=== PATIENT | female | born 1980 | race Caucasian/White ===

== ENCOUNTER → 2016-08-30 | Outpatient (CLI) | payer OTHER ==
[2016-08-30 09:03] LABS: Basophils # (A) 0.1 k/uL (0-0.2); Basophils % (A) 1 %; CH 34.2; CHCM 33.4; Eosinophils # (A) 0.3 k/uL (0-0.7); Eosinophils % (A) 4 %; HCT 43.7 % (34.0-46.0); HDW 2.01; HGB 14.2 gm/dL (11.4-16.0); Luc # (Auto) 0.18; Luc % (Auto) 3; Lymphocytes % (A) 30 %; MCH 33.4 pg (25.0-35.0); MCHC 32.4 g/dL (31.0-37.0); MCV 102.9 fL (80.0-100.0); Mean Platelet Volume 6.3; Monocytes # (A) 0.4 k/uL (0-1.0); Monocytes % (A) 5 %; Neutrophils # (A) 3.9 k/uL (1.3-7.7); Neutrophils % (A) 57 %; RBC 4.25 m/uL (3.80-5.40); RDW 11.8 % (11.5-15.5); WBC 6.8 k/uL (3.8-10.6); WBC (Perox) 7.17
== END | disposition home or self-care (01) ==
LOC: LABPAT 08:22
PROVIDERS: ATTEND Obstetrics & Gynecology
DX: Z01.812 Encounter for preprocedural laboratory examination (principal)
CPT/HCPCS: 36415; 85025

== ENCOUNTER 2016-09-03 07:10 | Day surgery (SDC) | payer OTHER ==
[2016-08-29 14:58] VITALS: BMI 25.6
[~2016-09-03 07:10] MED LIST: DEXAMETHASONE SOD PHOSPHATE 10 MG/ML 1 ML VIAL IV ONE; HYDROmorphone 1 MG/ML 1 ML SYRINGE IVP PRN; LIDOCAINE 1% 20 ML VIAL (10MG/ML) FOR IV START INTRADERMA PRN; MIDAZOLAM 2 MG/2 ML VIAL IV PRN; ONDANSETRON 4 MG/2 ML VIAL IVP ONE; Pre Op ABX Message 1 EACH MISC MISCELLANE ONE; SCOPOLAMINE 1.5MG/72HR PATCH TRANSDERM ONE
[2016-09-03] MEDS: LACTATED RINGERS 1,000 ML IV SCH ×2 (07:39→09:20)
--- NOTE | 2016-09-03 07:54 | P.HPOB ---
History of Present Illness H&P Date: 09/03/16 Chief Complaint: Menorrhagia 36 year old presents for D&C hysteroscopy and endometrial ablation with novasure. Review of Systems All systems: negative Constitutional: Denies chills, Denies fever Eyes: denies blurred vision, denies pain Ears, nose, mouth and throat: Denies headache, Denies sore throat Cardiovascular: Denies chest pain, Denies shortness of breath Respiratory: Denies cough Gastrointestinal: Denies abdominal pain, Denies diarrhea, Denies nausea, Denies vomiting Genitourinary: Denies dysuria, Denies hematuria Musculoskeletal: Denies myalgias Integumentary: Denies pruritus, Denies rash Neurological: Denies numbness, Denies weakness Psychiatric: Denies anxiety, Denies depression Endocrine: Denies fatigue, Denies weight change Past Medical History Past Medical History: Fibromyalgia Additional Past Medical History / Comment(s): fibromyalgia. MENORRHAGIA History of Any Multi-Drug Resistant Organisms: None Reported Past Surgical History: Section Additional Past Surgical History / Comment(s): D&C. LT HAND SX Past Anesthesia/Blood Transfusion Reactions: No Reported Reaction Past Psychological History: No Psychological Hx Reported Smoking Status: Current every day smoker Past Alcohol Use History: Daily Additional Past Alcohol Use History / Comment(s): SMOKES 1/2 PPD SINCE 2002 Past Drug Use History: None Reported - Past Family History Mother Family Medical History: Cancer Medications and Allergies Allergies Allergy/AdvReac Type Severity Reaction Status Date / Time lisinopril AdvReac Anaphylaxis Verified 09/03/16 07:32 Exam Osteopathic Statement: *. No significant issues noted on an osteopathic structural exam other than those noted in the History and Physical/Consult. - Vital Signs Vital signs: Vital Signs Temp Pulse Resp BP Pulse Ox 09/03/16 07:32 98.2 F 96 16 140/80 98 HEart: RRR Lungs: CTAB Abomen: soft, nontender Extremeties: neg mckayla's Assessment and Plan (1) Menorrhagia Status: Acute Plan: 1.D&C hysteroscopy and endometrial ablation with NovaSure
[2016-09-03] MEDS ORDERED: KETOROLAC 30 MG/ML 1 ML VIAL ONE (08:02)
[2016-09-03] MEDS ORDERED: LIDOCAINE 1% INJ 10MG/ML (20 ML MDV) ONE (08:02)
[2016-09-03] MEDS ORDERED: MIDAZOLAM 2 MG/2 ML VIAL ONE (08:02)
[2016-09-03] MEDS ORDERED: PROPOFOL 10 MG/ML 20 ML VIAL IV ONE (08:02)
--- NOTE | 2016-09-03 08:25 | P.OP ---
Date of Procedure: 09/03/16 Preoperative Diagnosis: 1.menorrhagia Postoperative Diagnosis: 1. menorrhagia Procedure(s) Performed: D&C, hysteroscopy, endometrial ablation with NovaSure Anesthesia: MAC Surgeon: Jannette Eaton Estimated Blood Loss (ml): 10 IV fluids (ml): 600 Urine output (ml): 20 Pathology: other (Endometrial curettings) Condition: stable Disposition: PACU Operative Findings: Cavity length 6.5 cm width 4.2 cm power 150 W time of ablation 58 seconds, adequate ablation after shoulder Description of Procedure: Patient is taken the operating room where general anesthesia was obtained without difficulty. She was prepped and draped in normal sterile fashion dorsal lithotomy position, legs placed in the candy cane stirrups. Bladder was drained of all urine. Weighted speculum placed in the vagina and the anterior lip the cervix was grasped with serial tooth tenaculum. The uterus sounded to 9 cm and the cervix under 2.5 cm making the cavity length 6.5 cm. The cervix was dilated to #8 Hegar dilator. Hysteroscopy was then performed. Both ostia were visualized and there was a smooth contour of the uterus. Sharp curet was then gently used to obtain endometrial curettings. The NovaSure was introduced into the uterus with a cavity length of 6.5 cm, width 4.2 cm. after cavity assessment was passed, the time of ablation was 58 seconds at 150 W. Hysteroscopy was again performed and adequate ablation was noted. All instruments removed from the vagina. Patient tolerated the procedure well, sponge and instrument counts were correct 2 and she was taken to recovery in stable condition.
[2016-09-03 08:34] VITALS: TEMP 97.2
[2016-09-03] MEDS ORDERED: HYDROmorphone 1 MG/ML 1 ML SYRINGE IVP ONE ×2 (08:46→08:57)
[2016-09-03 08:48] VITALS: RESP 16
[2016-09-03 09:44] VITALS: BP 105/78; PULSE 82
[2016-09-03] MEDS ORDERED: IBUPROFEN 200 MG TAB PO ONE (10:05)
== END 2016-09-03 10:37 | disposition home or self-care (01) ==
LOC: OR 07:10
PROVIDERS: ATTEND Obstetrics & Gynecology
DX: N92.0 Excessive and frequent menstruation with regular cycle (principal); M79.7 Fibromyalgia; F17.200 Nicotine dependence, unspecified, uncomplicated; Z79.1 Long term (current) use of non-steroidal anti-inflammatories (NSAID); Z88.8 Allergy status to other drugs, medicaments and biological substances
CPT/HCPCS: 81025; 88305; 58563; J2250; J1100; J2405; J2001; J1885; J1170; J2704

== ENCOUNTER → 2019-12-10 | Outpatient (CLI) | payer OTHER ==
--- NOTE | 2019-12-10 13:20 | MM ---
Reason for exam: clinical finding. Physical Findings: Nurse did not find any significant physical abnormalities on exam. MG Diagnostic Mammo w CAD AR Bilateral CC, MLO, spot compression CC, and ML view(s) were taken. No prior studies available for comparison. The breast tissue is extremely dense which could obscure a lesion on mammography. Finding: There is a high density, irregular mass located 4 cm from the nipple in the upper outer quadrant, middle position of the right breast. Asymmetric breast tissue greater in the left breast. These results were verbally communicated with the patient and result sheet given to the patient on 12/10/19. ASSESSMENT: Incomplete: need additional imaging evaluation, BI-RAD 0 RECOMMENDATION: Ultrasound of both breasts.
--- NOTE | 2019-12-10 13:23 | USB ---
Reason for exam: additional evaluation requested from abnormal screening. US Breast Workup Limited AR Right limited breast ultrasound including focal area of concern, retroareolar and axilla demonstrates a 0.4 x 0.3 x 0.4cm lesion too small to characterize at 12 o'clock. Left complete breast ultrasound includes all four quadrants, the retroareolar region and axilla. Finding demonstrates a 0.3 x 0.3 x 0.3cm lesion too small to characterize at 3 o'clock. These results were verbally communicated with the patient and result sheet given to the patient on 12/10/19. ASSESSMENT: Probably benign, BI-RAD 3 RECOMMENDATION: Ultrasound core biopsy of the right breast. (12 o'clock) Called Dr. Silvia Lua's office with mammographic findings and has scheduled an appointment for the patient for 12/29/19 at 4:[address] Lua. Biopsy scheduled for 12/20/19 at 1:00. PRELIMINARY REPORT CALLED AND FAXED TO DR. LUA ON 12/10/19. Ultrasound of both breasts in 6 months. Manage on a clinical basis with regard to left breast fullness.
== END | disposition home or self-care (01) ==
LOC: RADMAMWWP 08:40
PROVIDERS: ATTEND Family Medicine
DX: N63.21 Unspecified lump in the left breast, upper outer quadrant (principal)
CPT/HCPCS: 77066

== ENCOUNTER → 2019-12-20 | Day surgery (SDC) | payer OTHER ==
--- NOTE | 2019-12-20 13:36 | USB ---
EXAMINATION TYPE: US biopsy breast VAD RT, MG diagnostic mammo RT wo CAD DATE OF EXAM: 12/20/2019 CLINICAL HISTORY: R92.8 ABN MAMMO. TECHNIQUE: Ultrasound guided core biopsy of right 12:00 breast. COMPARISON: NONE FINDINGS: The procedure of ultrasound guided core biopsy was explained to the patient. Benefits, alternatives, and risks were discussed. An informed consent was then obtained. The patient was placed in supine positioning for imaging and for the procedure. The overlying skin was prepped and draped in usual sterile fashion. Lidocaine buffered with bicarbonate was used as anesthetic into the skin and subcutaneous tissue up to area of concern in the right 12:00 breast. A angela was made with surgical scalpel. Under ultrasound guidance, a 12-gauge vacuum assisted biopsy gun device was used to obtain 3 core samples. Following this, a biopsy clip was left in lesion. Postprocedural mammogram demonstrates appropriate deployment of clip marker. The patient tolerated the procedure well without any immediate complication. The patient was kept in the radiology department for short stay after the procedure and then discharged home in stable condition. IMPRESSION: Successful, uncomplicated ultrasound guided core biopsy of area of concern in the right 12:00 breast, full pathology results to follow. Pathology Results: Benign RIGHT BREAST LESION, ULTRASOUND GUIDED NEEDLE CORE BIOPSIES: Fibrocystic spectrum disease with a focal area of fibroadenomatoid hyperplasia. Recommendation Follow up ultrasound of the right and left breast in 6 months. (as recommended on 12/10/19) ALYSSA
[2019-12-20 14:03] VITALS: BP 136/90; PULSE 80; RESP 16; TEMP 97.8
== END ==
LOC: RADUSWWP 12:00
PROVIDERS: ATTEND Surgery
DX: N60.11 Diffuse cystic mastopathy of right breast (principal); N60.81 Other benign mammary dysplasias of right breast
CPT/HCPCS: 88305; 77065; 19083; A4648; J2001

== ENCOUNTER → 2020-06-26 | Outpatient (CLI) | payer OTHER ==
--- NOTE | 2020-06-26 12:00 | MM ---
Reason for exam: follow-up at short interval from prior study. Last mammogram was performed 6 months ago. History: Benign US biopsy breast VAD RT of the right breast, December 20, 2019. Physical Findings: Nurse did not find any significant physical abnormalities on exam. MG 3D Diag Mammo W/Cad AR Bilateral CC and MLO view(s) were taken. LM, spot compression CC, and spot compression MLO view(s) were taken of the right breast. Prior study comparison: December 20, 2019, right breast MG diagnostic mammo RT wo CAD. December 10, 2019, bilateral MG diagnostic mammo w CAD AR. The breast tissue is heterogeneously dense. This may lower the sensitivity of mammography. Previous mammotome biopsy in the right breast. Lateral right asymmetric density unchanged. Anterior asymmetric densities on the right. These results were verbally communicated with the patient and result sheet given to the patient on 06/26/20. ASSESSMENT: Probably benign, BI-RAD 3 RECOMMENDATION: Follow-up diagnostic mammogram of the right breast in 6 months.
--- NOTE | 2020-06-26 12:03 | USB ---
Reason for exam: follow-up at short interval from prior study. History: Benign US biopsy breast VAD RT of the right breast, December 20, 2019. US Breast BILAT Right complete breast ultrasound includes all four quadrants, the retroareolar region and axilla. Finding demonstrates a 0.5 x 0.3 x 0.2cm oval, cystic lesion at 12 o'clock at site of biopsy, ductal ectasia at the posterior nipple and elongated ductal ectasia at 3 o'clock. Left complete breast ultrasound includes all four quadrants, the retroareolar region and axilla. Finding demonstrates a 0.3 x 0.3 x 0.2cm oval, cystic lesion at 11 o'clock and a 0.6 x 0.7 x 0.4cm oval, hypoechoic with thru transmission at 11 o'clock suspect debris filled cyst, 6 month follow up recommended. These results were verbally communicated with the patient and result sheet given to the patient on 06/26/20. ASSESSMENT: Probably benign, BI-RAD 3 RECOMMENDATION: Follow-up diagnostic mammogram of the right breast in 6 months. Ultrasound of the left breast in 6 months. (11 o'clock)
== END | disposition home or self-care (01) ==
LOC: RADMAMWWP 09:45
PROVIDERS: ATTEND Surgery
DX: R92.8 Other abnormal and inconclusive findings on diagnostic imaging of breast (principal)
CPT/HCPCS: 77066; 76641; G0279; 77062

== ENCOUNTER → 2020-12-25 | Outpatient (CLI) | payer OTHER ==
--- NOTE | 2020-12-25 14:50 | USB ---
EXAMINATION TYPE: US breast limited LT DATE OF EXAM: 12/25/2020 COMPARISON: 02/24/2021, 12/20/2019 CLINICAL HISTORY: R92.8 abn mammogram. FINDINGS: Targeted left breast ultrasound was performed at 11:00. There is an unchanged 0.4 centimeter hypoecho ic lesion in the left breast at 11:00 which appears similar to the prior examination. A likely promin ent fat lobule also seen in the left breast 11:00 is unchanged. When compared to prior imaging dated June 26, 2020, these anechoic and hypoechoic ovoid lesions are seen in both breasts and are presum ed benign due to multiplicity and bilaterality. Additionally, nodularity is noted in both breasts on prior imaging on mammogram and are presumed benign due to multiplicity and bilaterality. IMPRESSION: No sonographic evidence for malignancy. BI-RADS 2, benign. Patient is due for her bilateral mammogram in June 2021.
--- NOTE | 2020-12-26 10:12 | MM ---
Reason for exam: additional evaluation requested from prior study. Last mammogram was performed 6 months ago. History: Benign US biopsy breast VAD RT of the right breast, December 20, 2019. Physical Findings: Nurse did not find any significant physical abnormalities on exam. MG 3D Diag Mammo W/Cad RT CC and MLO view(s) were taken of the right breast. Prior study comparison: June 26, 2020, bilateral MG 3d diag mammo w/cad AR. December 10, 2019, bilateral MG diagnostic mammo w CAD AR. The breast tissue is heterogeneously dense. This may lower the sensitivity of mammography. Right biopsy clip no change. No change right asymmetry. 6 month follow up mammogram with patient is due for bilateral exam. Recommend left breast ultrasound as per prior repeat. These results were verbally communicated with the patient and result sheet given to the patient on 12/25/20. ASSESSMENT: Incomplete: need additional imaging evaluation, BI-RAD 0 RECOMMENDATION: Ultrasound.
== END | disposition home or self-care (01) ==
LOC: RADMAMWWP 13:41
PROVIDERS: ATTEND Surgery
DX: N64.89 Other specified disorders of breast (principal)
CPT/HCPCS: 77065; 76642; G0279; 77061

== ENCOUNTER → 2021-08-27 | Outpatient (CLI) | payer OTHER ==
--- NOTE | 2021-08-27 14:17 | MM ---
Reason for exam: follow-up at short interval from prior study. Last mammogram was performed 8 months ago. History: Benign US biopsy breast VAD RT of the right breast, December 20, 2019. Physical Findings: A clinical breast exam by your physician is recommended on an annual basis and results should be correlated with mammographic findings. MG 3D Diag Mammo W/Cad AR Bilateral CC and MLO view(s) were taken. Prior study comparison: December 25, 2020, right breast MG 3d diag mammo w/cad RT. June 26, 2020, bilateral MG 3d diag mammo w/cad AR. The breast tissue is heterogeneously dense. This may lower the sensitivity of mammography. Previous mammotome biopsy in the right breast. There is no discrete abnormality including area of concern. No significant new findings when compared with previous films. These results were verbally communicated with the patient and result sheet given to the patient on 08/27/21. ASSESSMENT: Benign, BI-RAD 2 RECOMMENDATION: Routine screening mammogram of both breasts in 1 year.
== END | disposition home or self-care (01) ==
LOC: RADMAMWWP 13:39
PROVIDERS: ATTEND Family Medicine
DX: R92.2 Inconclusive mammogram (principal)
CPT/HCPCS: 77066; G0279; 77062

== ENCOUNTER → 2022-10-10 | Outpatient (CLI) | payer OTHER ==
--- NOTE | 2022-10-11 07:38 | MM ---
Reason for Exam: Screening (asymptomatic). Last mammogram was performed 1 year(s) and 1 month(s) ago. Patient History: Menarche at age 13. First Full-Term at age 19. 12/20/2019, Benign Core Biopsy on the right side. Risk Values: No 5 year model risk: 0.9%. NCI Lifetime model risk: 9.7%. Prior Study Comparison: 06/26/2020 Bilateral Diagnostic Mammogram, [facility]. 12/25/2020 Right Diagnostic Mammogram, [facility]. 08/27/2021 Bilateral Diagnostic Mammogram, [facility]. Tissue Density: The breast tissue is extremely dense which could obscure a lesion on mammography. Findings: Analyzed By CAD. Mammotome biopsy clip in the right breast is redemonstrated. Benign-appearing bilateral axillary lymph nodes are again seen. Occasional scattered and grouped benign-appearing tiny round calcification redemonstrated. Cluster of indistinct calcifications in the left breast middle depth slightly outer aspect new from older studies. Overall Assessment: Incomplete: need additional imaging evaluation, BI-RAD 0 Management: Diagnostic Mammogram of the left breast. Return for additional spot magnification and 3-D true lateral view left breast. [facility] will attempt to contact patient to return for supplemental views and ultrasound if indicated. Patient should continue monthly self-breast exams. A clinical breast exam by your physician is recommended on an annual basis. This exam should not preclude additional follow-up of suspicious palpable abnormalities. Note on No scores and lifetime risk: 1. A No score greater than 3% is considered moderate risk. If this is the case, consider specialist referral to assess eligibility for a risk reducing agent. 2. If overall lifetime risk for the development of breast cancer is 20% or higher, the patient may qualify for future screening with alternating mammogram and breast MRI. Electronically signed and approved by: Albert Joshi M.D.
== END | disposition home or self-care (01) ==
LOC: RADMAMWWP 13:30
PROVIDERS: ATTEND Family Medicine
DX: Z12.31 Encounter for screening mammogram for malignant neoplasm of breast (principal); Z98.890 Other specified postprocedural states
CPT/HCPCS: 77063; 77067

== ENCOUNTER → 2022-10-14 | Outpatient (CLI) | payer OTHER ==
--- NOTE | 2022-10-14 08:23 | MM ---
Reason for Exam: Additional evaluation requested from abnormal screening. Last screening mammogram was performed less than 1 month ago. Patient History: Menarche at age 13. First Full-Term at age 19. 12/20/2019, Benign Core Biopsy on the right side. Risk Values: No 5 year model risk: 0.9%. NCI Lifetime model risk: 9.7%. Prior Study Comparison: 12/25/2020 Right Diagnostic Mammogram, [facility]. 08/27/2021 Bilateral Diagnostic Mammogram, [facility]. 10/10/2022 Bilateral MG 3D screening mammo w/cad, [facility]. Tissue Density: Left: The breast tissue is extremely dense which could obscure a lesion on mammography. Findings: Analyzed By CAD. A group of subtle tiny benign-appearing calcifications in the left breast persist on some of the additional views have round morphology on spot magnification cc view. Overall Assessment: Probably benign, BI-RAD 3 Management: Diagnostic Mammogram of the left breast in 6 months. . Results were given to the patient verbally at the time of exam. Patient should continue monthly self-breast exams. A clinical breast exam by your physician is recommended on an annual basis. This exam should not preclude additional follow-up of suspicious palpable abnormalities. Note on No scores and lifetime risk: 1. A No score greater than 3% is considered moderate risk. If this is the case, consider specialist referral to assess eligibility for a risk reducing agent. 2. If overall lifetime risk for the development of breast cancer is 20% or higher, the patient may qualify for future screening with alternating mammogram and breast MRI. Electronically signed and approved by: Albert Joshi M.D.
== END | disposition home or self-care (01) ==
LOC: RADMAMWWP 07:44
PROVIDERS: ATTEND Family Medicine
DX: R92.8 Other abnormal and inconclusive findings on diagnostic imaging of breast (principal)
CPT/HCPCS: 77065; G0279; 77061

== ENCOUNTER 2023-03-19 03:08 | Emergency (ER) | payer OTHER ==
--- NOTE | 2023-03-19 03:50 | ED ---
Female Urogenital HPI - General Chief complaint: Urogenital Stated complaint: Difficulty Urinating Time Seen by Provider: 03/19/23 03:20 Source: patient Mode of arrival: ambulatory Limitations: no limitations - History of Present Illness Initial comments: Mary Ellen is a 43-year-old female who presents the ER today for evaluation of difficulty urinating. Patient reports that when he 5 days ago she developed acute onset of difficulty urinating. She came to the ER she had a Mora catheter placed she follow up with her primary care her Mora was removed 4 days later she had a pelvic ultrasound she was told she had an enlarged uterus with no other abnormalities were noted. She is supposed to follow up with gynecology. Patient had been doing well for 3 weeks and again today developed inability urinate. Patient has no other symptoms. No dysuria or frequency preceding the event. No back pain. No difficulty having bowel movements. No weakness or numbness in the extremities. No injuries. - Related Data Home Medications Medication Instructions Recorded Confirmed No Known Home Medications 12/15/19 12/20/19 Allergies Allergy/AdvReac Type Severity Reaction Status Date / Time lisinopril AdvReac Anaphylaxis Verified 03/19/23 03:17 Review of Systems ROS Statement: Those systems with pertinent positive or pertinent negative responses have been documented in the HPI. ROS Other: All systems not noted in ROS Statement are negative. Past Medical History Past Medical History: Fibromyalgia, Hypertension Additional Past Medical History / Comment(s): fibromyalgia. MENORRHAGIA History of Any Multi-Drug Resistant Organisms: None Reported Past Surgical History: Section, Orthopedic Surgery, Uterine Ablation Additional Past Surgical History / Comment(s): D&C. left hand surgery Past Anesthesia/Blood Transfusion Reactions: No Reported Reaction Past Psychological History: No Psychological Hx Reported Smoking Status: Current every day smoker Past Alcohol Use History: Daily Past Drug Use History: None Reported - Past Family History Mother Family Medical History: Cancer General Exam - General Exam Comments Initial Comments: Physical Exam GENERAL: Patient is well-developed and well-nourished. Patient is nontoxic and well-hydrated and is in no distress. HENT: Normocephalic, Atraumatic. EYES: PERRL, EOMI PULMONARY: Unlabored respirations. CARDIOVASCULAR: RRR Warm and well perfused extremities ABDOMEN: Non-distended SKIN: No rashes or bruising : Declined pelvic exam NEUROLOGIC: Alert and oriented Normal speech Normal gait MUSCULOSKELETAL: Moving all extremities with no apparent injury PSYCHIATRIC: No SI/HI Limitations: no limitations Course Vital Signs 03/19/23 03/19/23 03:15 04:39 Temperature 98 F 97.6 F Pulse Rate 108 H 88 Respiratory 20 16 Rate Blood Pressure 135/96 121/95 O2 Sat by Pulse 95 98 Oximetry Medical Decision Making - Medical Decision Making Was pt. sent in by a medical professional or institution (SHYLA Uriostegui, JUNIOR ENGINEER, urgent care, hospital, or usp...) When possible be specific @ -No Did you speak to anyone other than the patient for history (EMS, parent, family, police, friend...)? What history was obtained from this source @ -No Did you review nursing and triage notes (agree or disagree)? Why? @ -I reviewed and agree with nursing and triage notes Were old charts reviewed (outside hosp., previous admission, EMS record, old EKG, old radiological studies, urgent care reports/EKG's, usp records)? Report findings @ -No old charts were reviewed Differential Diagnosis (chest pain, altered mental status, abdominal pain women, abdominal pain men, vaginal bleeding, weakness, fever, dyspnea, syncope, headache, dizziness, GI bleed, back pain, seizure, CVA, palpatations, mental health, musculoskeletal)? @ -not applicable EKG interpreted by me (3pts min.). @ -As above X-rays interpreted by me (1pt min.). @ -None done CT interpreted by me (1pt min.). @ -None done U/S interpreted by me (1pt. min.). @ -None done What testing was considered but not performed or refused? (CT, X-rays, U/S, labs)? Why? @ -None What meds were considered but not given or refused? Why? @ -None Did you discuss the management of the patient with other professionals (professionals i.e. SHYLA Uriostegui, JUNIOR ENGINEER, lab, RT, psych nurse, delinquency prevention social worker, certified technician, teacher, ski patrol officer, rehabilitation caseworker)? Give summary @ -No Was smoking cessation discussed for >3mins.? @ -No Was critical care preformed (if so, how long)? @ -No Were there social determinants of health that impacted care today? How? (Homelessness, low income, unemployed, alcoholism, drug addiction, transportation, low edu. Level, literacy, decrease access to med. care, mcc, rehab)? @ -No Was there de-escalation of care discussed even if they declined (Discuss DNR or withdrawal of care, Hospice)? DNR status @ -No What co-morbidities impacted this encounter? (DM, HTN, Smoking, COPD, CAD, Cancer, CVA, ARF, Chemo, Hep., AIDS, mental health diagnosis, sleep apnea, morbid obesity)? @ -None Was patient admitted / discharged? Hospital course, mention meds given and route, prescriptions, significant lab abnormalities, going to OR and other pertinent info. @ -Discharge The patient was seen and evaluated history is obtained from patient. Patient has acute urinary retention with no other focal neurologic findings. Bladder scanner shows over 800 mL in the bladder and a Mora catheter was placed. Urinalysis showed no signs of infection. In 30 minutes after the Mora catheter was placed patient rated approximate 1400 mL she had relief of her discomfort. Patient was given a leg bag and discharged home she is comfortable with caring for her Mora catheter outpatient follow-up. I did provide her contact information for your director of sports medicine for further evaluation. Undiagnosed new problem with uncertain prognosis? @ -No Drug Therapy requiring intensive monitoring for toxicity (Heparin, Nitro, Insulin, Cardizem)? @ -No Were any procedures done? @ -No Diagnosis/symptom? @ Urinary retention Acute, or Chronic, or Acute on Chronic? @ -default Uncomplicated (without systemic symptoms) or Complicated (systemic symptoms)? @ -default Side effects of treatment? @ -No Exacerbation, Progression, or Severe Exacerbation? @ -No Poses a threat to life or bodily function? How? (Chest pain, [place], [place], pneumonia, PE, COPD, DKA, ARF, appy, cholecystitis, CVA, Diverticulitis, Homicidal, Suicidal, threat to staff... and all critical care pts) @ -No - Lab Data Lab Results 03/19/23 Range/Units 03:47 Urine Color Colorless Urine Appearance Clear (Clear) Urine pH 5.5 (5.0-8.0) Ur Specific [place] 1.003 (1.001-1.035) Urine Protein Negative (Negative) Urine Glucose (UA) Negative (Negative) Urine Ketones Negative (Negative) Urine Blood Negative (Negative) Urine Nitrite Negative (Negative) Urine Bilirubin Negative (Negative) Urine Urobilinogen <2.0 (<2.0) mg/dL Ur Leukocyte Esterase Negative (Negative) Disposition Clinical Impression: Urinary retention Disposition: HOME SELF-CARE Condition: Stable Is patient prescribed a controlled substance at d/c from ED?: No Referrals: Silvia Lua MD [Primary Care Provider] - 1-2 days Fran Emmanuel MD [STAFF PHYSICIAN] - 1-2 days
[2023-03-19 04:03] LABS: Appearance,Urine Clear (Clear); Bilirubin,Urine Negative (Negative); Blood,Urine Negative (Negative); Color,Urine Colorless; Glucose,Urine (UA) Negative (Negative); Ketones,Urine Negative (Negative); Leukocyte Esterase,Urine Negative (Negative); Nitrite,Urine Negative (Negative); PH, Urine 5.5 (5.0-8.0); Protein,Urine Negative (Negative); Specific Gravity,Urine 1.003 (1.001-1.035); Urobilinogen,Urine <2.0 mg/dL (<2.0)
[2023-03-19 04:49] VITALS: BP 121/95; PULSE 88; RESP 16; TEMP 97.6
== END 2023-03-19 04:40 | disposition home or self-care (01) ==
LOC: EC 03:08
DX: R33.9 Retention of urine, unspecified (principal); I10 Essential (primary) hypertension; F17.200 Nicotine dependence, unspecified, uncomplicated; Z88.8 Allergy status to other drugs, medicaments and biological substances
CPT/HCPCS: 51702; 51798; 81003; 99283

== ENCOUNTER 2023-04-11 04:26 | Emergency (ER) | payer OTHER ==
[2023-04-11 04:38] VITALS: BP 138/99; RESP 16; TEMP 97.6
--- NOTE | 2023-04-11 04:45 | ED ---
General Adult HPI - General Chief complaint: Urogenital Stated complaint: Urinary Retention Time Seen by Provider: 04/11/23 04:32 Source: patient, RN notes reviewed, old records reviewed Mode of arrival: ambulatory Limitations: no limitations - History of Present Illness Initial comments: 43-year-old female presenting with lower abdominal pressure and inability to urinate. Patient has recent history of urinary retention requiring Mora catheterization. She states she has an enlarged uterus and uterine fibroids she is scheduled for an appointment with her urologist today and has an appointment for hysterectomy in approximately one month. No fever. No vomiting. - Related Data Home Medications Medication Instructions Recorded Confirmed No Known Home Medications 12/15/19 12/20/19 Allergies Allergy/AdvReac Type Severity Reaction Status Date / Time lisinopril AdvReac Anaphylaxis Verified 04/11/23 04:29 Review of Systems ROS Statement: Those systems with pertinent positive or pertinent negative responses have been documented in the HPI. ROS Other: All systems not noted in ROS Statement are negative. Past Medical History Past Medical History: Fibromyalgia, Hypertension Additional Past Medical History / Comment(s): fibromyalgia. MENORRHAGIA History of Any Multi-Drug Resistant Organisms: None Reported Past Surgical History: Section, Orthopedic Surgery, Uterine Ablation Additional Past Surgical History / Comment(s): D&C. left hand surgery Past Anesthesia/Blood Transfusion Reactions: No Reported Reaction Past Psychological History: No Psychological Hx Reported Smoking Status: Current every day smoker Past Alcohol Use History: Daily Past Drug Use History: None Reported - Past Family History Mother Family Medical History: Cancer General Exam Limitations: no limitations General appearance: alert, in no apparent distress Head exam: Present: atraumatic, normocephalic Eye exam: Present: normal appearance, PERRL ENT exam: Present: normal exam Neck exam: Present: normal inspection. Absent: tenderness, meningismus Respiratory exam: Present: normal lung sounds bilaterally. Absent: respiratory distress, wheezes Cardiovascular Exam: Present: regular rate, normal rhythm GI/Abdominal exam: Absent: distended Extremities exam: Present: normal inspection Neurological exam: Present: alert, oriented X3, CN II-XII intact, normal gait. Absent: motor sensory deficit Psychiatric exam: Present: anxious Skin exam: Present: warm, dry, intact Course Vital Signs 04/11/23 04:30 Temperature 97.6 F Pulse Rate 106 H Respiratory 16 Rate Blood Pressure 138/99 O2 Sat by Pulse 98 Oximetry Medical Decision Making - Medical Decision Making Was pt. sent in by a medical professional or institution (SHYLA Uriostegui, [employer], urgent care, hospital, or shelter...) When possible be specific @ -[No] Did you speak to anyone other than the patient for history (EMS, parent, family, police, friend...)? What history was obtained from this source @ -[No] Did you review nursing and triage notes (agree or disagree)? Why? @ -[I reviewed and agree with nursing and triage notes] Were old charts reviewed (outside hosp., previous admission, EMS record, old EKG, old radiological studies, urgent care reports/EKG's, shelter records)? Report findings @ -[No old charts were reviewed] Differential Diagnosis (chest pain, altered mental status, abdominal pain women, abdominal pain men, vaginal bleeding, weakness, fever, dyspnea, syncope, headac he, dizziness, GI bleed, back pain, seizure, CVA, palpatations, mental health, musculoskeletal)? @ -Urinary retention, UTI EKG interpreted by me (3pts min.). @ -[As above] X-rays interpreted by me (1pt min.). @ -[None done] CT interpreted by me (1pt min.). @ -[None done] U/S interpreted by me (1pt. min.). @ -[None done] What testing was considered but not performed or refused? (CT, X-rays, U/S, labs)? Why? @ -[None] What meds were considered but not given or refused? Why? @ -[None] Did you discuss the management of the patient with other professionals (professionals i.e. SHYLA Uriostegui, [employer], lab, RT, psych nurse, social service manager, patient partner, teacher, school services officer, field nurse case manager)? Give summary @ -[No] Was smoking cessation discussed for >3mins.? @ -[No] Was critical care preformed (if so, how long)? @ -[No] Were there social determinants of health that impacted care today? How? (Homelessness, low income, unemployed, alcoholism, drug addiction, transportation, low edu. Level, literacy, decrease access to med. care, usp, rehab)? @ -[No] Was there de-escalation of care discussed even if they declined (Discuss DNR or withdrawal of care, Hospice)? DNR status @ -[No] What co-morbidities impacted this encounter? (DM, HTN, Smoking, COPD, CAD, Cancer, CVA, ARF, Chemo, Hep., AIDS, mental health diagnosis, sleep apnea, morbid obesity)? @ -[History of fibroid uterus, history of urinary retention Was patient admitted / discharged? Hospital course, mention meds given and route, prescriptions, significant lab abnormalities, going to OR and other pertinent info. @ -[39-year-old female with history of urinary retention presents with symptoms consistent with retention. Patient requests catheter. She states she has an appointment with her urologist today. She scheduled for hysterectomy in 1 month. No vomiting. No fever. Undiagnosed new problem with uncertain prognosis? @ -[No] Drug Therapy requiring intensive monitoring for toxicity (Heparin, Nitro, Insulin, Cardizem)? @ -[No] Were any procedures done? @ -[No] Diagnosis/symptom? @ -[Urinary retention Acute, or Chronic, or Acute on Chronic? @ -Acute Uncomplicated (without systemic symptoms) or Complicated (systemic symptoms)? @ -[default] Side effects of treatment? @ -[No] Exacerbation, Progression, or Severe Exacerbation? @ -[No] Poses a threat to life or bodily function? How? (Chest pain, [place], [place], pneumonia, PE, COPD, DKA, ARF, appy, cholecystitis, CVA, Diverticulitis, Homicidal, Suicidal, threat to staff... and all critical care pts) @ -[Low risk Disposition Clinical Impression: Urinary retention Disposition: HOME SELF-CARE Condition: Good Instructions (If sedation given, give patient instructions): Acute Urinary Retention in Women (ED) Additional Instructions: Please follow with your urologist Is patient prescribed a controlled substance at d/c from ED?: No Referrals: Silvia Lua MD [Primary Care Provider] - 1-2 days Time of Disposition: 05:20
[2023-04-11 05:35] LABS: Appearance,Urine Clear (Clear); Color,Urine Yellow; Glucose,Urine (UA) Negative (Negative); PH, Urine 5.5 (5.0-8.0); Protein,Urine Negative (Negative); Specific Gravity,Urine <1.005 (1.001-1.035)
[2023-04-11 05:36] LABS: Bilirubin,Urine Negative (Negative); Blood,Urine Negative (Negative); Ketones,Urine Negative (Negative); Leukocyte Esterase,Urine Negative (Negative); Nitrite,Urine Negative (Negative); Urobilinogen,Urine <2.0 mg/dL (<2.0)
[2023-04-11 05:55] VITALS: PULSE 80
== END 2023-04-11 05:40 | disposition home or self-care (01) ==
LOC: EC 04:26
DX: R33.9 Retention of urine, unspecified (principal); I10 Essential (primary) hypertension; F17.200 Nicotine dependence, unspecified, uncomplicated; Z88.8 Allergy status to other drugs, medicaments and biological substances
CPT/HCPCS: 51702; 81003; 99283